=== PATIENT | female | born 1990 | race American Indian/Alaskan Native ===

== ENCOUNTER 2016-11-30 22:15 | Emergency (ER) | payer SELFPAY ==
[2016-11-30 22:55] VITALS: BP 112/62
[2016-11-30] MEDS ORDERED: BENADRYL PO ONE (23:49)
[2016-11-30] MEDS ORDERED: MOTRIN PO ONE (23:49)
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
== END 2016-12-01 00:27 | disposition home or self-care (01) ==
LOC: ED 22:15
DX: B86 Scabies (principal); J45.909 Unspecified asthma, uncomplicated; F17.200 Nicotine dependence, unspecified, uncomplicated
CPT/HCPCS: 99282

== ENCOUNTER 2016-12-22 20:18 | Emergency (ER) | payer SELFPAY ==
[2016-12-22] MEDS ORDERED: DECADRON IM ONE (23:20)
[2016-12-22] MEDS ORDERED: BENADRYL PO ONE (23:20)
[2016-12-22] MEDS ORDERED: PEPCID PO ONE (23:22)
[2016-12-22 23:45] LABS: Basophils % (Auto) 1.2 % (0.0-1.8); Eosinophils % (Auto) 8.6 % (0.0-4.3); Hematocrit 44.4 % (30.3-42.9); Hemoglobin 14.9 gm/dl (10.1-14.3); Mean Corpuscular HGB Conc 34 % (30-34); Mean Corpuscular Hemoglobin 31 pg (28-32); Mean Corpuscular Volume 93 fl (79-97); Platelet Count 208 K/mm3 (140-440); Red Blood Count 4.78 M/mm3 (3.65-5.03); Red Cell Distribution Width 12.7 % (13.2-15.2); White Blood Count 3.8 K/mm3 (4.5-11.0)
[2016-12-23 00:04] LABS: Anion Gap 16 mmol/L; Blood Urea Nitrogen 14 mg/dL (7-17); Calcium 9.9 mg/dL (8.4-10.2); Carbon Dioxide 28 mmol/L (22-30); Chloride 100.9 mmol/L (98-107); Glucose 72 mg/dL (65-100); Potassium 4.2 mmol/L (3.6-5.0); Sodium 141 mmol/L (137-145)
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
[2016-12-23] MEDS ORDERED: BACTROBAN 2% TP ONE (03:39)
[2016-12-23 03:45] VITALS: BP 110/56
== END 2016-12-23 03:45 | disposition home or self-care (01) ==
LOC: ED 20:18
DX: L25.9 Unspecified contact dermatitis, unspecified cause (principal); L30.8 Other specified dermatitis; J45.909 Unspecified asthma, uncomplicated
CPT/HCPCS: 36415; 80048; 84703; 85025; 87040; 96372; 99283; J1100